=== PATIENT | female | born 1985 | race American Indian/Alaskan Native ===

== ENCOUNTER 2017-03-24 17:15 | Emergency (ER) | payer OTHER ==
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
[2017-03-24] MEDS ORDERED: TYLENOL #3 PO ONE (23:06)
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
[2017-03-25 01:15] VITALS: BP 126/68
== END 2017-03-25 01:15 | disposition home or self-care (01) ==
LOC: ED 17:15
DX: S09.90XA Unspecified injury of head, initial encounter (principal); Y08.89XA Assault by other specified means, initial encounter; Y93.9 Activity, unspecified; Y92.9 Unspecified place or not applicable; Y99.9 Unspecified external cause status
CPT/HCPCS: 70450; 81025; 99284

== ENCOUNTER 2017-07-03 18:48 | Emergency (ER) | payer BC, OTHER ==
[2017-07-03] MEDS ORDERED: TYLENOL PO ONE (19:40)
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
[2017-07-04 01:52] VITALS: BP 115/73
--- NOTE | 2017-07-04 09:37 | XRay Report ---
LEFT ELBOW, 2 VIEWS History: Left elbow pain. Findings: Soft tissue injury and soft tissue gas is noted in the posterior soft tissues. Normal bone mineralization. No acute osseous findings or joint pathology is detected. Impression: Soft tissue injury. No acute osseous injury or foreign body detected.
== END 2017-07-04 01:50 | disposition home or self-care (01) ==
LOC: ED 18:48
DX: S51.012A Laceration without foreign body of left elbow, initial encounter (principal); W45.0XXA Nail entering through skin, initial encounter; Y93.89 Activity, other specified; Y99.8 Other external cause status; Y92.830 Public park as the place of occurrence of the external cause
CPT/HCPCS: 36415; 84703